=== PATIENT | female | born 1985 | race Caucasian/White ===

== ENCOUNTER 2018-03-27 04:01 | Emergency (ER) | payer OTHER ==
[2018-03-27 04:34] LABS: Urine Blood TRACE (NEG); Urine Glucose NEGATIVE (NEG); Urine Protein NEGATIVE (NEG); Urine Specific Gravity 1.015 (1.005-1.030); Urine pH 5.5 (5.0-7.0)
[2018-03-27 05:03] LABS: Absolute Lymphocytes (CBC) 0.6 K/uL (0.7-4.9); Absolute Monocytes 0.3 K/uL (0.1-1.3); Absolute Neutrophil 5.1 K/uL (1.8-8.0); Basophils % 0.1 % (0-1.3); Eosinophils % 0.9 % (0-4.4); Hematocrit 37.3 % (36.0-45.0); Lymphocytes % 10.3 % (15.3-44.8); MCH 31.1 pg (27.0-35.0); MCV 93.5 fL (80-100); MPV 7.4 fL (7.6-11.3); Monocytes % 4.7 % (3.3-12.3); RBC Red Blood Cell Count 3.99 M/uL (3.86-4.86)
[2018-03-27 05:25] LABS: Potassium 3.3 mEq/L (3.6-5.0)
[2018-03-27 05:32] LABS: Albumin 4.5 g/dL (3.2-5.5); Bilirubin Direct 0.1 mg/dL (0-0.2); Bilirubin Total 0.8 mg/dL (0.3-1.2); Protein, Total 7.1 g/dL (6.0-8.3)
[2018-03-27 05:58] LABS: Urine Bacteria 20-50 /HPF (<20)
[2018-03-27 05:59] LABS: Urine Culture Reflex Order REFLEXED; Urine RBC <5 /HPF (NONE SEEN)
--- NOTE | 2018-03-27 06:06 | EDPHYS ---
Physician Documentation [facility] Name: Katiuska Trujillo Age: 32 yrs Sex: Female : 1985 Arrival Date: 03/27/2018 Time: 04:06 Bed 5 Private MD: ED Physician Jose Abernathy HPI: 03/27 05:58 This 32 yrs old Female presents to ER via Ambulatory with complaints of gerald Pelvic Problem - swelling. 05:58 The patient presents with abdominal pain in the lower abdomen. Onset: The gerald symptoms/episode began/occurred 2 day(s) ago. The patient presents with pelvic pain. Onset: The symptoms/episode began/occurred 2 day(s) ago. Onset: The symptoms/episode began/occurred. Modifying factors: The symptoms are alleviated by nothing, the symptoms are aggravated by nothing. Associated signs and symptoms: The patient has no apparent associated signs or symptoms. Severity of symptoms: At their worst the symptoms were very mild, in the emergency department the symptoms are unchanged. The symptoms do not radiate. 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 - Social history:: Smoking status: Patient/guardian denies using tobacco. - Family history:: not pertinent. ROS: 05:58 Constitutional: Negative for fever, chills, and weight loss, Eyes: Negative for injury, gerald pain, redness, and discharge, ENT: Negative for injury, pain, and discharge, Neck: Negative for injury, pain, and swelling, Cardiovascular: Negative for chest pain, palpitations, and edema, Respiratory: Negative for shortness of breath, cough, wheezing, and pleuritic chest pain, Back: Negative for injury and pain, : Negative for injury, bleeding, discharge, and swelling, MS/Extremity: Negative for injury and deformity, Skin: Negative for injury, rash, and discoloration, Neuro: Negative for headache, weakness, numbness, tingling, and seizure, Psych: Negative for depression, anxiety, suicide ideation, homicidal ideation, and hallucinations, Allergy/Immunology: Negative for hives, rash, and allergies, Endocrine: Negative for neck swelling, polydipsia, polyuria, polyphagia, and marked weight changes, Hematologic/Lymphatic: Negative for swollen nodes, abnormal bleeding, and unusual bruising. 05:58 Abdomen/GI: Positive for abdominal pain, of the right lower quadrant. Exam: 05:58 Constitutional: This is a well developed, well nourished patient who is awake, alert, gerald and in no acute distress. Head/Face: Normocephalic, atraumatic. Eyes: Pupils equal round and reactive to light, extra-ocular motions intact. Lids and lashes normal. Conjunctiva and sclera are non-icteric and not injected. Cornea within normal limits. Periorbital areas with no swelling, redness, or edema. ENT: Nares patent. No nasal discharge, no septal abnormalities noted. Tympanic membranes are normal and external auditory canals are clear. Oropharynx with no redness, swelling, or masses, exudates, or evidence of obstruction, uvula midline. Mucous membranes moist. Neck: Trachea midline, no thyromegaly or masses palpated, and no cervical lymphadenopathy. Supple, full range of motion without nuchal rigidity, or vertebral point tenderness. No Meningismus. Chest/axilla: Normal chest wall appearance and motion. Nontender with no deformity. No lesions are appreciated. Cardiovascular: Regular rate and rhythm with a normal S1 and S2. No gallops, murmurs, or rubs. Normal PMI, no JVD. No pulse deficits. Respiratory: Lungs have equal breath sounds bilaterally, clear to auscultation and percussion. No rales, rhonchi or wheezes noted. No increased work of breathing, no retractions or nasal flaring. Back: No spinal tenderness. No costovertebral tenderness. Full range of motion. Female : Normal external genitalia. Skin: Warm, dry with normal turgor. Normal color with no rashes, no lesions, and no evidence of cellulitis. MS/ Extremity: Pulses equal, no cyanosis. Neurovascular intact. Full, normal range of motion. Neuro: Awake and alert, GCS 15, oriented to person, place, time, and situation. Cranial nerves II-XII grossly intact. Motor strength 5/5 in all extremities. Sensory grossly intact. Cerebellar exam normal. Normal gait. Psych: Awake, alert, with orientation to person, place and time. Behavior, mood, and affect are within normal limits. 05:58 Abdomen/GI: Inspection: abdomen appears normal, Bowel sounds: normal, Palpation: abdomen is soft and non-tender, soft, nontender, Liver: no appreciated palpable abnormalities, Hernia: not appreciated. Vital Signs: 04:26 BP 168 / 102; Pulse 99; Resp 20; Temp 98.7(O); Pulse Ox 100% on R/A; Weight 54.43 kg; tl2 Height 5 ft. 1 in. (154.94 cm); Pain 2/10; 04:55 BP 127 / 84; Pulse 88; Resp 18; Pulse Ox 99% on R/A; tl2 06:42 BP 134 / 89; Pulse 74; Resp 18; Pulse Ox 100% on R/A; tl2 04:26 Body Mass Index 22.67 (54.43 kg, 154.94 cm) tl2 MDM: 05:00 [facility] 05:58 Data reviewed: vital signs, nurses notes, lab test result(s), amylase and lipase, CBC, [facility] electrolytes, hepatic panel, urinalysis. 05 04:27 Order name: Urine Dipstick--Ancillary (enter results); Complete Time: 05:10 03/27 04:27 Order name: Urine --Ancillary (enter results); Complete Time: 05:10 03/27 04:44 Order name: Amylase, Serum; Complete Time: 05:50 03/27 04:44 Order name: Basic Metabolic Panel; Complete Time: 05:50 03/27 04:44 Order name: CBC with Diff; Complete Time: 05:10 03/27 04:44 Order name: Creatinine for Radiology; Complete Time: 05:50 03/27 04:44 Order name: Hepatic Function; Complete Time: 05:50 03/27 04:44 Order name: Lipase; Complete Time: 05:50 03/27 04:44 Order name: Urine Microscopic Only 03/27 04:44 Order name: IV Saline Lock; Complete Time: 04:55 03/27 04:44 Order name: Labs collected and sent; Complete Time: 04:55 03/27 04:44 Order name: Urine Dipstick-Ancillary (obtain specimen); Complete Time: 04:48 03/27 06:00 Order name: Urine Culture EDNJ Administered Medications: 06:42 Drug: Potassium Chloride 20 mEq Route: PO; tl2 06:43 Follow up: Response: No adverse reaction; Medication administered at discharge. tl2 Disposition: 03/27/18 06:05 Discharged to Home. Impression: Abdominal tenderness. - Condition is Stable. - Discharge Instructions: Abdominal Pain, Adult, Abdominal Pain, Adult, [id number]. - Prescriptions for Bentyl 20 mg Oral Tablet - take 1 tablet by ORAL route every 6 hours As needed; 20 tablet. Motrin IB 200 mg Oral Tablet - take 1 tablet by ORAL route every 6 hours As needed as needed with food; 20 tablet. - Medication Reconciliation Form, Thank You Letter, Antibiotic Education, Prescription Opioid Use form. - Follow up: Private Physician; When: 2 - 3 days; Reason: Recheck today's complaints, Continuance of care, Re-evaluation by your physician. - Problem is new. - Symptoms have improved. Signatures: Dispatcher [employer] [facility] Jose Abernathy MD MD cha Knox, Taylor RN RN tl2 Tammy Gonzalez Corrections: (The following items were deleted from the chart) 06:44 06:05 03/27/2018 06:05 Discharged to Home. Impression: Abdominal tenderness. Condition tl2 is Stable. Forms are Medication Reconciliation Form, Thank You Letter, Antibiotic Education, Prescription Opioid Use. Follow up: Private Physician; When: 2 - 3 days; Reason: Recheck today's complaints, Continuance of care, Re-evaluation by your physician. Problem is new. Symptoms have improved. gerald
--- NOTE | 2018-03-27 06:06 | ER ---
Nurse's Notes [facility] Name: Katiuska Trujillo Age: 32 yrs Sex: Female : 1985 Arrival Date: 03/27/2018 Time: 04:06 Bed 5 Private MD: Diagnosis: Abdominal tenderness Presentation: 03/27 04:24 Presenting complaint: Patient states: I have swelling on the right side of my pelvic tl2 area and it feels like something is pushing against my bladder and it just feels tight in my lower abdomen. Pt denies any vaginal bleeding or discharge. Transition of care: patient was not received from another setting of care. Onset of symptoms was March 24, 2018. Initial Sepsis Screen: Does the patient meet any 2 criteria? No. Patient's initial sepsis screen is negative. Does the patient have a suspected source of infection? No. Patient's initial sepsis screen is negative. Care prior to arrival: None. 04:24 Method Of Arrival: Ambulatory tl2 04:24 Acuity: DUSTY 4 tl2 Triage Assessment: 04:26 General: Appears in no apparent distress. uncomfortable, Behavior is cooperative, tl2 appropriate for age, anxious. Pain: Complains of pain in groin and right femoral area Pain radiates to right lower back Pain currently is 2 out of 10 on a pain scale. at worst was 6 out of 10 on a pain scale. Quality of pain is described as pressure. Neuro: Level of Consciousness is awake, alert, obeys commands, Oriented to person, place, time, situation. Cardiovascular: Denies chest pain. Respiratory: Airway is patent Respiratory effort is even, unlabored, Respiratory pattern is regular, symmetrical. GI: Abdomen is flat, Patient currently denies vomiting. : Denies burning with urination, vaginal bleeding. Derm: Skin is pink, warm \T\ dry. 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 - Social history:: Smoking status: Patient/guardian denies using tobacco. - Family history:: not pertinent. Screenin:29 Abuse screen: Denies threats or abuse. Nutritional screening: No deficits noted. tl2 Tuberculosis screening: No symptoms or risk factors identified. Fall Risk None identified. Assessment: 04:29 General: see triage assessment. tl2 05:30 Reassessment: Patient appears in no apparent distress at this time. Patient and/or tl2 family updated on plan of care and expected duration. Pain level reassessed. Patient is alert, oriented x 3, equal unlabored respirations, skin warm/dry/pink. 06:42 Reassessment: Patient appears in no apparent distress at this time. Patient and/or tl2 family updated on plan of care and expected duration. Pain level reassessed. Patient is alert, oriented x 3, equal unlabored respirations, skin warm/dry/pink. Pt verbalized understanding of discharge instructions, need for follow up and prescription usage. Vital Signs: 04:26 BP 168 / 102; Pulse 99; Resp 20; Temp 98.7(O); Pulse Ox 100% on R/A; Weight 54.43 kg; tl2 Height 5 ft. 1 in. (154.94 cm); Pain 2/10; 04:55 BP 127 / 84; Pulse 88; Resp 18; Pulse Ox 99% on R/A; tl2 06:42 BP 134 / 89; Pulse 74; Resp 18; Pulse Ox 100% on R/A; tl2 04:26 Body Mass Index 22.67 (54.43 kg, 154.94 cm) tl2 ED Course: 04:06 Patient arrived in ED. am2 04:24 Rosa Guan, RN is Primary Nurse. tl2 04:26 Triage completed. tl2 04:26 Arm band placed on right wrist. tl2 04:29 Patient has correct armband on for positive identification. Placed in gown. Bed in low tl2 position. Call light in reach. Side rails up X 1. 04:56 Inserted saline lock: 20 gauge in right antecubital area, using aseptic technique. tl2 Blood collected. 05:00 Jose Abernathy MD is Attending Physician. rg2 06:42 No provider procedures requiring assistance completed. IV discontinued, intact, tl2 bleeding controlled, No redness/swelling at site. Pressure dressing applied. Administered Medications: 06:42 Drug: Potassium Chloride 20 mEq Route: PO; tl2 06:43 Follow up: Response: No adverse reaction; Medication administered at discharge. tl2 Outcome: 06:05 Discharge ordered by . gerald 06:42 Discharged to home ambulatory. tl2 06:42 Condition: stable 06:42 Discharge instructions given to patient, Instructed on discharge instructions, follow up and referral plans. medication usage, Demonstrated understanding of instructions, follow-up care, medications, Prescriptions given X 2. 06:44 Patient left the ED. tl2 Signatures: Pro Perla rg2 Jose Abernathy MD MD cha Knox, Taylor, RN RN tl2 Edie Diamond 2
[2018-03-27] MEDS ORDERED: POTASSIUM CL SA 10 MEQ TAB PO ONE (06:29)
== END 2018-03-27 06:44 | disposition home or self-care (01) ==
LOC: ER 04:01
DX: R10.813 Right lower quadrant abdominal tenderness (principal)
CPT/HCPCS: 36415; 80048; 80076; 81003; 81015; 81025; 82150; 83690; 85025; 87086; 87088; 99284